=== PATIENT | male | born 1945 | race Caucasian/White ===

== ENCOUNTER 2019-06-09 14:11 | Inpatient (IN) | payer MEDICARE ==
[~2019-06-09] VITALS: Ht 188 cm; Wt 80.0 kg
[2019-06-09 15:10] LABS: BASOPHILS # (AUTO) 0.1 X10'3 (0-0.2); BASOPHILS % (AUTO) 0.9 % (0-1); EOSINOPHILS # (AUTO) 0.1 X10'3 (0-0.9); HEMATOCRIT 37.2 % (42.0-52.0); HEMOGLOBIN 12.3 g/dl (14.0-17.9); LYMPHOCYTES # (AUTO) 1.4 X10'3 (1.1-4.8); LYMPHOCYTES % (AUTO) 25.1 % (21-51); MEAN CORPUSCULAR HEMOGLOBIN 26.9 PG (27.0-31.0); MEAN CORPUSCULAR VOLUME 81.5 FL (78-98); MEAN PLATELET VOLUME 8.5 FL (7.4-10.4); MONOCYTES # (AUTO) 0.5 X10'3 (0-0.9); NEUTROPHILS # (AUTO) 3.7 X10'3 (1.8-7.7); PLATELET COUNT 191 X10'3 (140-440); RED BLOOD COUNT 4.56 X10'6 (4.70-6.10); RED CELL DISTRIBUTION WIDTH 20.2 % (11.5-14.5); WHITE BLOOD COUNT 5.6 X10'3 (4.5-11.0)
[2019-06-09 15:24] LABS: ALANINE AMINOTRANSFERASE 47 U/L (12-78); ALBUMIN 4.1 G/DL (3.4-5.0); ALBUMIN/GLOBULIN RATIO 1.5 (1.1-1.5); ALKALINE PHOSPHATASE 96 IU/L (46-116); ANION GAP 13 (8-16); ASPARTATE AMINO TRANSFERASE 26 U/L (10-37); BILIRUBIN,TOTAL 0.9 MG/DL (0.1-1.0); BLOOD UREA NITROGEN 21 MG/DL (7-18); BUN/CREATININE RATIO 19.6 (5.4-32.0); CALCIUM 9.1 MG/DL (8.5-10.1); CHLORIDE 109 MMOL/L (99-107); CREATININE 1.07 MG/DL (0.60-1.10); GLUCOSE 95 MG/DL (70-104); SODIUM 146 MMOL/L (135-145); TOTAL CARBON DIOXIDE 24.4 MMOL/L (24-32); TOTAL PROTEIN 6.9 G/DL (6.4-8.2); eGFR 67 ML/MIN
[2019-06-09 15:43] LABS: PARTIAL THROMBOPLASTIN TIME 28 SECONDS (22-32)
[2019-06-09 16:06] LABS: ANISOCYTOSIS 3+; PLATELET ESTIMATE NORMAL
[2019-06-09] MEDS ORDERED: potassium CL 10mEq/100ml bag 100 ML IV PRN ×2 (16:30)
[2019-06-09] MEDS ORDERED: ondansetron/PF 4mg/2ml inj IV PRN (16:30)
[2019-06-09] MEDS ORDERED: acetaminophen 325mg tablet PO PRN ×2 (16:30)
[2019-06-09] MEDS ORDERED: potassium Cl 20 mEq SR tablet PO PRN (16:30)
[2019-06-09] MEDS ORDERED: bisacodyl 10mg suppository rectal RC PRN (16:30)
[2019-06-09] MEDS ORDERED: magnesium 2GM in 50ml NS 50 ML IV PRN (16:30)
[2019-06-09] MEDS ORDERED: magnesium hydroxide 30ml (MOM) UD suspension PO PRN (16:30)
[2019-06-09] MEDS ORDERED: magnesium 4gm in 100ml NS 100 ML IV PRN (16:30)
[2019-06-09] MEDS ORDERED: magnesium Cl slow-release 64mg tablet PO PRN (16:30)
[2019-06-09] MEDS ORDERED: HYDROcodone/acetaminophen 10/325mg tab PO PRN (16:30)
[2019-06-09] MEDS ORDERED: HYDROcodone/acetaminophen 5mg/325mg tablet PO PRN (16:30)
[2019-06-09] MEDS ORDERED: mag hydrox/Alum hydrox/simeth 30ml oral suspension PO PRN (16:30)
[2019-06-09] MEDS ORDERED: furosemide 10 MG/1 ML 10ml inj IV ONE (16:35)
[2019-06-09] MEDS ORDERED: MELA3TAB64 PO (16:56)
[2019-06-09] MEDS ORDERED: LACTC PO (16:56)
[2019-06-09] MEDS ORDERED: SENN-250 PO (16:56)
[2019-06-09] MEDS ORDERED: POTA-82 PO (16:56)
[2019-06-09] MEDS ORDERED: FURO-150 PO (16:56)
[2019-06-09] MEDS ORDERED: ACET-2119 PO (16:56)
[2019-06-09 17:30] VITALS: BP 152/67
--- NOTE | 2019-06-09 17:43 | NUR ---
Pt. arrived from the ER. No complaints. Pt. placed on monitor and vitals taken. Skin is clear.
[2019-06-09 18:00] VITALS: BP 124/50
--- NOTE | 2019-06-09 18:28 | NUR ---
Problems reprioritized. Patient report given, questions answered & plan of care reviewed with Earnestine GOMEZ and Sienna GOMEZ.
--- NOTE | 2019-06-09 18:32 | NUR ---
Patient in room MED 316. I have received report from aPtel GOMEZ and had the opportunity to ask questions and assume patient care.
[2019-06-09] MEDS: furosemide 40mg/4ml inj IV SCH (20:00)
--- NOTE | 2019-06-09 20:08 | NUR ---
Room 316-Active order for Echo. Thank you for your help. JASON Colby
[2019-06-09] MEDS ORDERED: temazepam 15mg capsule PO PRN (21:00)
[2019-06-09 22:00] VITALS: BP 148/77
[2019-06-09] MEDS: Melatonin 3mg tablet PO SCH (22:28)
[2019-06-10 02:00] VITALS: BP 132/73
[2019-06-10 04:09] LABS: BASOPHILS # (AUTO) 0.1 X10'3 (0-0.2); BASOPHILS % (AUTO) 0.9 % (0-1); EOSINOPHILS # (AUTO) 0.1 X10'3 (0-0.9); EOSINOPHILS % (AUTO) 1.5 % (0-6); HEMATOCRIT 37.9 % (42.0-52.0); HEMOGLOBIN 12.4 g/dl (14.0-17.9); LYMPHOCYTES # (AUTO) 1.9 X10'3 (1.1-4.8); LYMPHOCYTES % (AUTO) 32.3 % (21-51); MEAN CORPUSCULAR HEMOGLOBIN 26.8 PG (27.0-31.0); MEAN CORPUSCULAR HGB CONC 32.9 g/dL (33.0-36.5); MEAN CORPUSCULAR VOLUME 81.4 FL (78-98); MEAN PLATELET VOLUME 8.6 FL (7.4-10.4); MONOCYTES # (AUTO) 0.5 X10'3 (0-0.9); MONOCYTES % (AUTO) 9.1 % (2-12); NEUTROPHILS # (AUTO) 3.2 X10'3 (1.8-7.7); NEUTROPHILS % (AUTO) 56.2 % (42-75); PLATELET COUNT 187 X10'3 (140-440); RED BLOOD COUNT 4.65 X10'6 (4.70-6.10); RED CELL DISTRIBUTION WIDTH 20.2 % (11.5-14.5); WHITE BLOOD COUNT 5.8 X10'3 (4.5-11.0)
[2019-06-10 04:22] LABS: ALANINE AMINOTRANSFERASE 41 U/L (12-78); ALBUMIN 3.7 G/DL (3.4-5.0); ALBUMIN/GLOBULIN RATIO 1.4 (1.1-1.5); ALKALINE PHOSPHATASE 93 IU/L (46-116); ANION GAP 12 (8-16); ASPARTATE AMINO TRANSFERASE 20 U/L (10-37); BILIRUBIN,TOTAL 0.7 MG/DL (0.1-1.0); BLOOD UREA NITROGEN 30 MG/DL (7-18); BUN/CREATININE RATIO 27.5 (5.4-32.0); CALCIUM 8.5 MG/DL (8.5-10.1); CHLORIDE 109 MMOL/L (99-107); CREATININE 1.09 MG/DL (0.60-1.10); GLUCOSE 99 MG/DL (70-104); POTASSIUM 3.4 MMOL/L (3.5-5.1); SODIUM 145 MMOL/L (135-145); TOTAL CARBON DIOXIDE 24.4 MMOL/L (24-32); TOTAL PROTEIN 6.4 G/DL (6.4-8.2); eGFR 66 ML/MIN
[2019-06-10 04:24] LABS: ANISOCYTOSIS 3+; PLATELET ESTIMATE NORMAL
[2019-06-10 04:25] LABS: CHOL/HDL RATIO 3.6 (0.00-4.99); CHOLESTEROL 167 MG/DL (0-200); ELLIPTOCYTES FEW; HDL CHOLESTEROL 46 MG/DL (35-60); LDL CHOLESTEROL 107 MG/DL (50-100); MAGNESIUM 2.1 MG/DL (1.5-2.4); PHOSPHORUS 4.9 MG/DL (2.3-4.5); SCHISTOCYTES FEW; TRIGLYCERIDES 101 MG/DL (20-135)
[2019-06-10] MEDS: potassium Cl 20 mEq SR tablet PO PRN ×2 (04:57→08:56)
--- NOTE | 2019-06-10 05:54 | NUR ---
Orienteer documentation: I have reviewed and agree with all interventions, assessments performed and documented by JASON El. Orienteer Medication Administration: For this medication-pass time frame, all medication were reviewed, dispensed, administered and documented per hospital policy by JASON El.
--- NOTE | 2019-06-10 06:15 | NUR ---
Patient in room MED 316. I have received report from Earnestine GOMEZ and had the opportunity to ask questions and assume patient care.
--- NOTE | 2019-06-10 06:36 | NUR ---
Problems reprioritized. Patient report given, questions answered & plan of care reviewed with Wilda GOMEZ.
[2019-06-10 06:43] VITALS: BP 137/85
[2019-06-10] MEDS ORDERED: non-formulary drug (Potassium Chloride 1 TAB) PO SCH (08:00)
[2019-06-10] MEDS ORDERED: MESSAGE TO NURSING PO ONE (08:35)
[2019-06-10] MEDS: furosemide 40mg/4ml inj IV SCH (08:54)
[2019-06-10] MEDS: potassium Cl 20 mEq SR tablet PO SCH (08:54)
[2019-06-10] MEDS: K and/or MAG REPLACEMENT MC SCH (08:57)
[2019-06-10 09:15] LABS: HEMATOCRIT 37.8 % (42.0-52.0); HEMOGLOBIN 12.6 g/dl (14.0-17.9); MEAN CORPUSCULAR HEMOGLOBIN 27.1 PG (27.0-31.0); MEAN CORPUSCULAR HGB CONC 33.3 g/dL (33.0-36.5); MEAN CORPUSCULAR VOLUME 81.4 FL (78-98); MEAN PLATELET VOLUME 8.4 FL (7.4-10.4); PLATELET COUNT 183 X10'3 (140-440); RED BLOOD COUNT 4.64 X10'6 (4.70-6.10); RED CELL DISTRIBUTION WIDTH 19.8 % (11.5-14.5)
[2019-06-10 09:28] LABS: ALBUMIN 3.7 G/DL (3.4-5.0); ANION GAP 6 (8-16); BLOOD UREA NITROGEN 31 MG/DL (7-18); BUN/CREATININE RATIO 26.1 (5.4-32.0); CALCIUM 8.8 MG/DL (8.5-10.1); CHLORIDE 110 MMOL/L (99-107); CREATININE 1.19 MG/DL (0.60-1.10); GLUCOSE 146 MG/DL (70-104); PARTIAL THROMBOPLASTIN TIME 28 SECONDS (22-32); POTASSIUM 4.1 MMOL/L (3.5-5.1); SODIUM 145 MMOL/L (135-145); TOTAL CARBON DIOXIDE 28.6 MMOL/L (24-32); eGFR 60 ML/MIN
[2019-06-10 09:46] LABS: HEMOGLOBIN A1C 5.3 % (4.5-6.2)
[2019-06-10 10:20] LABS: ABG BASE EXCESS -2.1 mmol/L (-2.0-3.0); ABG HCO3 20.7 mmol/L (22.0-26.0); ABG OXYGEN SATURATION 96.5 % (95-98); ABG PCO2 (T) 30.3 mmHg (35.0-45.0); ABG PH (T) 7.453 (7.350-7.450); ABG PO2 (T) 87.5 mmHg (83-108); ALLEN'S TEST Positive; FCOHb 0.3 % (0.5-1.5); FMetHb 0.2 % (0.3-1.12); RESPIRATORY RATE (OBSERVED) 19 b/min; TOTAL HEMOGLOBIN 13.6 G/dl (14.0-17.9)
[2019-06-10 10:32] LABS: C-REACTIVE PROTEIN 0.38 MG/DL (0.0-0.5)
[2019-06-10] MEDS ORDERED: albuterol 2.5 MG/3 ML nebule ONE (10:34)
[2019-06-10 11:00] VITALS: BP 117/59
--- NOTE | 2019-06-10 12:26 | NUR ---
Paged hospitalist duong HENDRICKS, "Wilda [phone]- Rm.316 Odin Ruth patient's heart cath records from [facility] on chart."
[2019-06-10 15:00] VITALS: BP 119/80
--- NOTE | 2019-06-10 16:17 | NUR ---
Paged hospitalist, "Wilda [phone]- We placed orders for the preop PA/LAT CXR. It looks questionable, could you review it for 316 Garett Ruth. Thank you"
[2019-06-10 18:00] VITALS: BP 103/45
--- NOTE | 2019-06-10 18:32 | NUR ---
Problems reprioritized. Patient report given, questions answered & plan of care reviewed with Janna GOMEZ. Addendum: 06/10/19 at 1834 by Wilda Gonzales RN Report not given to Janna GOMEZ. Problems reprioritized. Patient report given, questions answered & plan of care reviewed with Earnestine GOMEZ/Sienna GOMEZ.
--- NOTE | 2019-06-10 19:01 | NUR ---
Patient in room MED 316. I have received report from Wilda GOMEZ and had the opportunity to ask questions and assume patient care.
--- NOTE | 2019-06-10 19:09 | NUR ---
Patient in room MED 316. I have received report from Wilda GOMEZ and had the opportunity to ask questions and assume patient care.
--- NOTE | 2019-06-10 20:18 | NUR ---
Patient's family are having concerns that the patient's dose of Lasix has been lowered from 80 mg per day to 40 mg daily. They state that in their experience the patient will swell up even just overnight with this low of a dose. They report that in the past other doctors have done this and he has become fluid overloaded very quickly. They are wanting to express their concerns regarding this. I will report this to the hospitalist.
[2019-06-10] MEDS: Melatonin 3mg tablet PO SCH (21:00)
[2019-06-10 22:00] VITALS: BP 132/54
[2019-06-11] VITALS (7 sets, daily range): BP systolic 99–139; BP diastolic 42–88
--- NOTE | 2019-06-11 05:40 | NUR ---
Orienteer documentation: I have reviewed and agree with all interventions, assessments performed and documented by Sienna Matthews RN. Orienteer Medication Administration: For this medication-pass time frame, all medication were reviewed, dispensed, administered and documented per hospital policy by Sienna Matthews RN.
[2019-06-11 06:20] LABS: BASOPHILS # (AUTO) 0.1 X10'3 (0-0.2); EOSINOPHILS # (AUTO) 0.1 X10'3 (0-0.9); EOSINOPHILS % (AUTO) 2.2 % (0-6); HEMATOCRIT 36.9 % (42.0-52.0); HEMOGLOBIN 12.2 g/dl (14.0-17.9); LYMPHOCYTES # (AUTO) 1.7 X10'3 (1.1-4.8); LYMPHOCYTES % (AUTO) 32.6 % (21-51); MEAN CORPUSCULAR HEMOGLOBIN 27.1 PG (27.0-31.0); MEAN CORPUSCULAR HGB CONC 33.2 g/dL (33.0-36.5); MEAN CORPUSCULAR VOLUME 81.5 FL (78-98); MEAN PLATELET VOLUME 8.9 FL (7.4-10.4); MONOCYTES # (AUTO) 0.4 X10'3 (0-0.9); MONOCYTES % (AUTO) 8.7 % (2-12); NEUTROPHILS # (AUTO) 2.8 X10'3 (1.8-7.7); NEUTROPHILS % (AUTO) 55.5 % (42-75); PLATELET COUNT 176 X10'3 (140-440); RED BLOOD COUNT 4.52 X10'6 (4.70-6.10); RED CELL DISTRIBUTION WIDTH 19.5 % (11.5-14.5); WHITE BLOOD COUNT 5.1 X10'3 (4.5-11.0)
[2019-06-11 06:23] LABS: ALANINE AMINOTRANSFERASE 37 U/L (12-78); ALBUMIN 3.4 G/DL (3.4-5.0); ALBUMIN/GLOBULIN RATIO 1.3 (1.1-1.5); ALKALINE PHOSPHATASE 82 IU/L (46-116); ANION GAP 11 (8-16); ASPARTATE AMINO TRANSFERASE 18 U/L (10-37); BILIRUBIN,TOTAL 0.7 MG/DL (0.1-1.0); BLOOD UREA NITROGEN 32 MG/DL (7-18); BUN/CREATININE RATIO 29.9 (5.4-32.0); CALCIUM 8.6 MG/DL (8.5-10.1); CHLORIDE 111 MMOL/L (99-107); CREATININE 1.07 MG/DL (0.60-1.10); GLUCOSE 99 MG/DL (70-104); MAGNESIUM 2.2 MG/DL (1.5-2.4); POTASSIUM 3.6 MMOL/L (3.5-5.1); SODIUM 146 MMOL/L (135-145); TOTAL CARBON DIOXIDE 24.2 MMOL/L (24-32); TOTAL PROTEIN 6.1 G/DL (6.4-8.2); eGFR 67 ML/MIN
--- NOTE | 2019-06-11 06:29 | NUR ---
Problems reprioritized. Patient report given, to Art RN questions answered & plan of care reviewed with .
[2019-06-11] MEDS: K and/or MAG REPLACEMENT MC SCH (08:00)
[2019-06-11] MEDS ORDERED: furosemide 40mg/4ml inj IV SCH (08:00)
[2019-06-11] MEDS ORDERED: furosemide 20 MG/2 ML vial IV SCH (08:00)
[2019-06-11] MEDS: potassium Cl 20 mEq SR tablet PO SCH (08:01)
[2019-06-11 10:00] LABS: ANISOCYTOSIS 2+; PLATELET ESTIMATE NORMAL
[2019-06-11 10:01] LABS: ELLIPTOCYTES FEW
[2019-06-11] MEDS ORDERED: furosemide 20 MG/2 ML vial IV ONE (13:10)
--- NOTE | 2019-06-11 16:00 | NUR ---
Patient met at bedside by TIM, discussed food preferences and provided patient with written alternative menu to regular diet, patient expressed very grateful that the list was provided and happy with the discussion. Addendum: 06/11/19 at [address] Amended: Links added.
[2019-06-11] MEDS ORDERED: MESSAGE TO NURSING PO ONE (18:00)
--- NOTE | 2019-06-11 18:00 | NUR ---
Patient in room MED 316. I have received report from JASON Pacheco and had the opportunity to ask questions and assume patient care.
[2019-06-11] MEDS ORDERED: mupirocin 2% ointment 22GM NS SCH (20:00)
[2019-06-11] MEDS: Melatonin 3mg tablet PO SCH (21:00)
[2019-06-11] MEDS: furosemide 20 MG/2 ML vial IV SCH (21:40)
[2019-06-12] MEDS ORDERED: MESSAGE TO NURSING PO ONE ×3 (02:00→05:30)
[2019-06-12 04:54] LABS: BASOPHILS % (AUTO) 0.9 % (0-1); EOSINOPHILS # (AUTO) 0.1 X10'3 (0-0.9); EOSINOPHILS % (AUTO) 2.4 % (0-6); HEMATOCRIT 36.1 % (42.0-52.0); LYMPHOCYTES # (AUTO) 1.7 X10'3 (1.1-4.8); LYMPHOCYTES % (AUTO) 33.5 % (21-51); MEAN CORPUSCULAR HEMOGLOBIN 26.9 PG (27.0-31.0); MEAN CORPUSCULAR HGB CONC 33.3 g/dL (33.0-36.5); MEAN CORPUSCULAR VOLUME 80.9 FL (78-98); MEAN PLATELET VOLUME 8.3 FL (7.4-10.4); MONOCYTES # (AUTO) 0.5 X10'3 (0-0.9); MONOCYTES % (AUTO) 9.3 % (2-12); NEUTROPHILS # (AUTO) 2.8 X10'3 (1.8-7.7); NEUTROPHILS % (AUTO) 53.9 % (42-75); PLATELET COUNT 185 X10'3 (140-440); RED BLOOD COUNT 4.47 X10'6 (4.70-6.10); RED CELL DISTRIBUTION WIDTH 19.3 % (11.5-14.5); WHITE BLOOD COUNT 5.2 X10'3 (4.5-11.0)
[2019-06-12 05:04] LABS: ALANINE AMINOTRANSFERASE 38 U/L (12-78); ALBUMIN 3.5 G/DL (3.4-5.0); ALBUMIN/GLOBULIN RATIO 1.4 (1.1-1.5); ALKALINE PHOSPHATASE 82 IU/L (46-116); ANION GAP 8 (8-16); ASPARTATE AMINO TRANSFERASE 13 U/L (10-37); BILIRUBIN,TOTAL 0.6 MG/DL (0.1-1.0); BLOOD UREA NITROGEN 30 MG/DL (7-18); BUN/CREATININE RATIO 28.8 (5.4-32.0); CALCIUM 9.3 MG/DL (8.5-10.1); CHLORIDE 111 MMOL/L (99-107); CREATININE 1.04 MG/DL (0.60-1.10); GLUCOSE 101 MG/DL (70-104); MAGNESIUM 2.5 MG/DL (1.5-2.4); PHOSPHORUS 4.7 MG/DL (2.3-4.5); POTASSIUM 3.9 MMOL/L (3.5-5.1); SODIUM 144 MMOL/L (135-145); TOTAL CARBON DIOXIDE 25.1 MMOL/L (24-32); eGFR 70 ML/MIN
[2019-06-12] MEDS: gabapentin 400mg capsule PO ONE (05:30)
[2019-06-12] MEDS: metoprolol tartrate 12.5mg (1/2 tablet) PO SCH ×2 (05:30→20:00)
[2019-06-12] MEDS ORDERED: dextrose 50%-water 50ml dispensing syringe IV PRN ×2 (05:30→18:20)
[2019-06-12] MEDS ORDERED: NUT.TX.IMPAIRED DIGEST FXN (Ensure Clear) 237 ML PO ONE (05:30)
[2019-06-12 06:00] VITALS: BP 104/54
[2019-06-12 06:37] LABS: ANISOCYTOSIS 2+; ELLIPTOCYTES 1+; PLATELET ESTIMATE NORMAL
[2019-06-12 06:38] LABS: BURR CELLS FEW
[2019-06-12 08:00] VITALS: BP 103/68
[2019-06-12] MEDS: furosemide 20 MG/2 ML vial IV SCH ×2 (08:00→19:55)
[2019-06-12] MEDS: K and/or MAG REPLACEMENT MC SCH (08:00)
[2019-06-12] MEDS: potassium Cl 20 mEq SR tablet PO SCH (08:45)
[2019-06-12] MEDS ORDERED: ringers solution, lacted 1,000 ML IV ONE (10:36)
[2019-06-12 11:31] LABS: BASOPHILS % (AUTO) 0.7 % (0-1); EOSINOPHILS # (AUTO) 0.1 X10'3 (0-0.9); EOSINOPHILS % (AUTO) 1.4 % (0-6); LYMPHOCYTES # (AUTO) 1.6 X10'3 (1.1-4.8); LYMPHOCYTES % (AUTO) 27.4 % (21-51); MEAN CORPUSCULAR HGB CONC 33.6 g/dL (33.0-36.5); MEAN CORPUSCULAR VOLUME 80.5 FL (78-98); MEAN PLATELET VOLUME 7.9 FL (7.4-10.4); MONOCYTES # (AUTO) 0.5 X10'3 (0-0.9); MONOCYTES % (AUTO) 8.9 % (2-12); NEUTROPHILS # (AUTO) 3.5 X10'3 (1.8-7.7); NEUTROPHILS % (AUTO) 61.6 % (42-75); PRE OP HEMATOCRIT 36.7 % (42.0-52.0); PRE OP HEMOGLOBIN 12.3 g/dL (14.0-17.9); PRE OP PLATELET COUNT 199 X10'3 (140-440); RED BLOOD COUNT 4.56 X10'6 (4.70-6.10); RED CELL DISTRIBUTION WIDTH 19.6 % (11.5-14.5)
[2019-06-12 11:44] LABS: ANISOCYTOSIS 2+; ELLIPTOCYTES FEW; PLATELET ESTIMATE NORMAL; SCHISTOCYTES FEW
[2019-06-12 11:52] LABS: ALBUMIN 3.8 G/DL (3.4-5.0); ALBUMIN/GLOBULIN RATIO 1.4 (1.1-1.5); ALKALINE PHOSPHATASE 90 IU/L (46-116); BLOOD UREA NITROGEN 30 MG/DL (7-18); BUN/CREATININE RATIO 25.4 (5.4-32.0); CALCIUM 8.5 MG/DL (8.5-10.1); CHLORIDE 109 MMOL/L (99-107); CREATININE 1.18 MG/DL (0.60-1.10); PRE OP ALT 34 U/L (30-65); PRE OP ANION GAP 9 (8-16); PRE OP AST 14 U/L (10-37); PRE OP BILIRUB, TOTAL 0.8 MG/DL (0.0-1.0); PRE OP GLUCOSE 78 MG/DL (70-104); PRE OP SODIUM 145 MMOL/L (135-145); TOTAL CARBON DIOXIDE 26.6 MMOL/L (24-32); TOTAL PROTEIN 6.6 G/DL (6.4-8.2); eGFR 60 ML/MIN
[2019-06-12 15:00] VITALS: BP 110/71
[2019-06-12 18:00] VITALS: BP 133/52
[2019-06-12] MEDS ORDERED: insulin glargine (Lantus) pen - multi-dose SQ PRN (18:20)
[2019-06-12] MEDS ORDERED: insulin regular, human 100 UNIT in normal saline 100ml IV soln 100 ML IV SCH ×2 (18:20)
[2019-06-12] MEDS: Melatonin 3mg tablet PO SCH (21:00)
[2019-06-12 21:05] LABS: CLARITY,URINE CLEAR (Clear); COLOR,URINE YELLOW (Yellow); GLUCOSE, URINE NEGATIVE (Neg); KETONES,URINE NEGATIVE (Neg); LEUKOCYTE ESTERASE ,URINE NEGATIVE (Neg); NITRITES, URINE NEGATIVE (Neg); OCCULT BLOOD,URINE NEGATIVE (Neg); PROTEIN,URINE NEGATIVE (Neg); UROBILINOGEN,URINE 0.2 E.U/dL (0.2-1.0)
[2019-06-12 21:15] LABS: UA COLLECTION TYPE URINAL
--- NOTE | 2019-06-12 21:46 | NUR ---
Patient in room MED 316. I have received report from Art RN and had the opportunity to ask questions and assume patient care.
[2019-06-12 22:00] VITALS: BP 114/46
[2019-06-13] VITALS (26 sets, daily range): BP systolic 74–138; BP diastolic 54–81
[2019-06-13 03:20] LABS: BASOPHILS # (AUTO) 0.1 X10'3 (0-0.2); EOSINOPHILS # (AUTO) 0.1 X10'3 (0-0.9); EOSINOPHILS % (AUTO) 1.9 % (0-6); HEMOGLOBIN 12.1 g/dl (14.0-17.9); LYMPHOCYTES # (AUTO) 1.7 X10'3 (1.1-4.8); MEAN CORPUSCULAR HEMOGLOBIN 27.4 PG (27.0-31.0); MEAN CORPUSCULAR HGB CONC 33.5 g/dL (33.0-36.5); MEAN CORPUSCULAR VOLUME 81.6 FL (78-98); MEAN PLATELET VOLUME 8.7 FL (7.4-10.4); MONOCYTES # (AUTO) 0.5 X10'3 (0-0.9); MONOCYTES % (AUTO) 8.7 % (2-12); NEUTROPHILS # (AUTO) 3.1 X10'3 (1.8-7.7); NEUTROPHILS % (AUTO) 56.4 % (42-75); PLATELET COUNT 181 X10'3 (140-440); RED BLOOD COUNT 4.41 X10'6 (4.70-6.10); RED CELL DISTRIBUTION WIDTH 19.5 % (11.5-14.5); WHITE BLOOD COUNT 5.4 X10'3 (4.5-11.0)
[2019-06-13 03:22] LABS: PARTIAL THROMBOPLASTIN TIME 28 SECONDS (22-32)
[2019-06-13 03:24] LABS: ALANINE AMINOTRANSFERASE 35 U/L (12-78); ALBUMIN 3.8 G/DL (3.4-5.0); ALBUMIN/GLOBULIN RATIO 1.4 (1.1-1.5); ALKALINE PHOSPHATASE 89 IU/L (46-116); ANION GAP 12 (8-16); ASPARTATE AMINO TRANSFERASE 17 U/L (10-37); BILIRUBIN,TOTAL 0.8 MG/DL (0.1-1.0); BLOOD UREA NITROGEN 31 MG/DL (7-18); BUN/CREATININE RATIO 24.8 (5.4-32.0); CALCIUM 8.7 MG/DL (8.5-10.1); CHLORIDE 109 MMOL/L (99-107); CREATININE 1.25 MG/DL (0.60-1.10); GLUCOSE 98 MG/DL (70-104); MAGNESIUM 2.4 MG/DL (1.5-2.4); PHOSPHORUS 4.7 MG/DL (2.3-4.5); POTASSIUM 3.6 MMOL/L (3.5-5.1); SODIUM 146 MMOL/L (135-145); TOTAL CARBON DIOXIDE 24.9 MMOL/L (24-32); TOTAL PROTEIN 6.5 G/DL (6.4-8.2); eGFR 56 ML/MIN
[2019-06-13] MEDS: metoprolol tartrate 12.5mg (1/2 tablet) PO SCH ×2 (04:19→08:00)
[2019-06-13] MEDS: gabapentin 400mg capsule PO ONE (04:20)
[2019-06-13 04:27] LABS: ANISOCYTOSIS 2+; ELLIPTOCYTES 1+; PLATELET ESTIMATE NORMAL
[2019-06-13] MEDS ORDERED: ROPIVAcaine 0.5% (5mg/ml) 30ml vial ONE (05:08)
[2019-06-13] MEDS ORDERED: vancomycin/NS 1 GM ADD-VANTAGE 250 ML IV ONE ×2 (05:30)
[2019-06-13] MEDS ORDERED: insulin regular, human 100 UNIT in normal saline 100ml IV soln 100 ML IV SCH ×4 (05:30→14:10)
[2019-06-13] MEDS ORDERED: cefazolin/dext.iso 2gm/50ml 100 ML IV ONE (05:30)
[2019-06-13] MEDS ORDERED: insulin glargine (Lantus) pen - multi-dose SQ PRN (05:30)
[2019-06-13] MEDS ORDERED: LORazepam 2 mg/ml vial IV ONE (06:00)
[2019-06-13] MEDS ORDERED: famotidine 20mg tablet PO ONE (06:00)
--- NOTE | 2019-06-13 06:46 | NUR ---
Reviewed and agreed with Ramesh Matthews RN's charting.
--- NOTE | 2019-06-13 06:51 | NUR ---
Problems reprioritized. Patient report given, questions answered & plan of care reviewed with Pat RN.
[2019-06-13] MEDS ORDERED: SUFENTANIL CITRATE 50 MCG/ML 2ml ampule IV ONE (06:52)
[2019-06-13] MEDS ORDERED: midazolam 2 mg/2 ml injection ONE ×3 (06:52→08:27)
[2019-06-13] MEDS ORDERED: rocuronium 10mg/ml inj IV ONE ×2 (06:53→08:09)
[2019-06-13] MEDS ORDERED: etomidate 2mg/ml inj. ONE (06:53)
[2019-06-13] MEDS ORDERED: ePHEDrine 50MG/ML INJ. ONE (07:17)
[2019-06-13] MEDS ORDERED: albumin (Human) 5% 250ml 250 ML IV ONE ×2 (07:18→18:50)
[2019-06-13 07:25] LABS: ABG BASE EXCESS -2.9 mmol/L (-2.0-3.0); ABG HCO3 22.2 mmol/L (22.0-26.0); ABG OXYGEN SATURATION 99.4 % (95-98); ABG PCO2 39.9 mmHg (35.0-45.0); ABG PH 7.363 (7.350-7.450); ABG PO2 341.7 mmHg (60.0-100.0); CL (ABG) 106 mmol/L (99-107); FCOHb 0.5 % (0.5-1.5); FMetHb 0.5 % (0.3-1.12); FO2Hb 98.4 % (94-100); GLUCOSE (ABG) 280 mg/dl (70-104); IONIZED CA (ABG) 1.13 mmol/L (1.03-1.32); K (ABG) 3.4 mmol/L (3.3-5.1); NA (ABG) 139 mmol/L (135-145); TOTAL HEMOGLOBIN 11.2 G/dl (14.0-17.9)
[2019-06-13] MEDS ORDERED: LIDOcaine 2% (20 mg/ml) 5ml cardiac syringe ONE (08:00)
[2019-06-13] MEDS ORDERED: sodium bicarbonate (8.4%) 1 mEq/ml syringe ONE (08:00)
[2019-06-13] MEDS ORDERED: magnesium sulf 1 GM/2 ML ONE (08:00)
[2019-06-13] MEDS ORDERED: albumin (human) 25% 100 ML IV solution IV ONE (08:00)
[2019-06-13] MEDS ORDERED: aminocaproic acid 250 MG/1 ML inj. ONE (08:00)
[2019-06-13] MEDS ORDERED: mupirocin 2% nasal ointment 1gm UD NS SCH (08:00)
[2019-06-13] MEDS ORDERED: potassium Cl 2 mEq/ml inj IV ONE (08:00)
[2019-06-13] MEDS ORDERED: heparin 10,000 units/1 ML INJ ONE (08:00)
[2019-06-13] MEDS ORDERED: phenylephrine 10mg/ml inj. ONE (08:00)
[2019-06-13] MEDS ORDERED: methylPREDNISolone sod. succ. 500mg inj ONE (08:00)
[2019-06-13] MEDS ORDERED: calcium chloride 100 MG/1 ML inj IV ONE (08:00)
[2019-06-13 08:06] LABS: ABG BASE EXCESS -4.7 mmol/L (-2.0-3.0); ABG HCO3 20.7 mmol/L (22.0-26.0); ABG OXYGEN SATURATION 96.7 % (95-98); ABG PCO2 39.1 mmHg (35.0-45.0); ABG PH 7.341 (7.350-7.450); ABG PO2 100.7 mmHg (60.0-100.0); CL (ABG) 106 mmol/L (99-107); FCOHb 0.8 % (0.5-1.5); FMetHb 0.3 % (0.3-1.12); FO2Hb 95.6 % (94-100); GLUCOSE (ABG) 214 mg/dl (70-104); IONIZED CA (ABG) 1.13 mmol/L (1.03-1.32); K (ABG) 3.3 mmol/L (3.3-5.1); NA (ABG) 138 mmol/L (135-145); TOTAL HEMOGLOBIN 10.8 G/dl (14.0-17.9)
[2019-06-13 08:25] LABS: ABG BASE EXCESS -2.8 mmol/L (-2.0-3.0); ABG HCO3 22.2 mmol/L (22.0-26.0); ABG OXYGEN SATURATION 99.6 % (95-98); ABG PCO2 38.9 mmHg (35.0-45.0); ABG PH 7.374 (7.350-7.450); ABG PO2 441.2 mmHg (60.0-100.0); CL (ABG) 104 mmol/L (99-107); FCOHb 0.9 % (0.5-1.5); FMetHb 0.4 % (0.3-1.12); FO2Hb 98.3 % (94-100); GLUCOSE (ABG) 184 mg/dl (70-104); IONIZED CA (ABG) 1.04 mmol/L (1.03-1.32); K (ABG) 4.5 mmol/L (3.3-5.1); NA (ABG) 137 mmol/L (135-145); TOTAL HEMOGLOBIN 8.6 G/dl (14.0-17.9)
[2019-06-13 08:30] LABS: ABG BASE EXCESS VENOUS -2.1 mmol/L; ABG HCO3 VENOUS 24.2 mmol/L; ABG PCO2 VENOUS 49.1 mmHg; ABG PO2 VENOUS 71.1 mmHg; FCOHb VENOUS 1.2 %; FMetHb VENOUS 0.3 %; FO2Hb VENOUS 89.5 %; TOTAL HEMOGLOBIN 8.7 G/dl (14.0-17.9)
[2019-06-13 08:31] LABS: CL (ABG) 104 mmol/L (99-107); GLUCOSE (ABG) 187 mg/dl (70-104); IONIZED CA (ABG) 1.05 mmol/L (1.03-1.32); NA (ABG) 138 mmol/L (135-145)
[2019-06-13 08:45] LABS: ABG HCO3 24.2 mmol/L (22.0-26.0); ABG OXYGEN SATURATION 99.8 % (95-98); ABG PCO2 53.1 mmHg (35.0-45.0); ABG PH 7.276 (7.350-7.450); ABG PO2 455.4 mmHg (60.0-100.0); CL (ABG) 104 mmol/L (99-107); FCOHb 0.8 % (0.5-1.5); FMetHb 0.3 % (0.3-1.12); FO2Hb 98.7 % (94-100); GLUCOSE (ABG) 182 mg/dl (70-104); K (ABG) 3.8 mmol/L (3.3-5.1); NA (ABG) 139 mmol/L (135-145); TOTAL HEMOGLOBIN 10.7 G/dl (14.0-17.9)
[2019-06-13 09:15] LABS: ABG BASE EXCESS -3.9 mmol/L (-2.0-3.0); ABG HCO3 21.4 mmol/L (22.0-26.0); ABG OXYGEN SATURATION 99.3 % (95-98); ABG PCO2 40.1 mmHg (35.0-45.0); ABG PH 7.346 (7.350-7.450); ABG PO2 373.3 mmHg (60.0-100.0); CL (ABG) 105 mmol/L (99-107); FCOHb 0.3 % (0.5-1.5); FMetHb 0.6 % (0.3-1.12); FO2Hb 98.4 % (94-100); GLUCOSE (ABG) 167 mg/dl (70-104); K (ABG) 3.7 mmol/L (3.3-5.1); NA (ABG) 138 mmol/L (135-145); TOTAL HEMOGLOBIN 10.4 G/dl (14.0-17.9)
[2019-06-13 09:26] LABS: ABG BASE EXCESS 1.8 mmol/L (-2.0-3.0); ABG HCO3 26.8 mmol/L (22.0-26.0); ABG PCO2 44.2 mmHg (35.0-45.0); ABG PH 7.401 (7.350-7.450); ABG PO2 338.4 mmHg (60.0-100.0); CL (ABG) 101 mmol/L (99-107); FCOHb 0.2 % (0.5-1.5); FMetHb 0.6 % (0.3-1.12); FO2Hb 98.2 % (94-100); GLUCOSE (ABG) 151 mg/dl (70-104); K (ABG) 3.5 mmol/L (3.3-5.1); NA (ABG) 138 mmol/L (135-145)
[2019-06-13] MEDS ORDERED: acetaminophen 1,000mg/100ml IV 100 ML IV ONE (09:26)
[2019-06-13 10:05] LABS: ABG BASE EXCESS -0.3 mmol/L (-2.0-3.0); ABG HCO3 21.1 mmol/L (22.0-26.0); ABG OXYGEN SATURATION 99.3 % (95-98); ABG PCO2 24.9 mmHg (35.0-45.0); ABG PH 7.545 (7.350-7.450); ABG PO2 412.6 mmHg (60.0-100.0); CL (ABG) 105 mmol/L (99-107); FCOHb 0.6 % (0.5-1.5); FMetHb 0.6 % (0.3-1.12); FO2Hb 98.1 % (94-100); GLUCOSE (ABG) 140 mg/dl (70-104); IONIZED CA (ABG) 1.18 mmol/L (1.03-1.32); K (ABG) 4.1 mmol/L (3.3-5.1); NA (ABG) 139 mmol/L (135-145); TOTAL HEMOGLOBIN 10.9 G/dl (14.0-17.9)
[2019-06-13 10:30] LABS: ABG BASE EXCESS VENOUS -0.4 mmol/L; ABG HCO3 VENOUS 24.9 mmol/L; ABG PCO2 VENOUS 43.2 mmHg; ABG PO2 VENOUS 34.2 mmHg; CL (ABG) 104 mmol/L (99-107); FCOHb VENOUS 1.2 %; FMetHb VENOUS 0.5 %; FO2Hb VENOUS 60.3 %; GLUCOSE (ABG) 155 mg/dl (70-104); K (ABG) 3.7 mmol/L (3.3-5.1); NA (ABG) 140 mmol/L (135-145); TOTAL HEMOGLOBIN 11.8 G/dl (14.0-17.9)
[2019-06-13 11:02] LABS: PARTIAL THROMBOPLASTIN TIME 32 SECONDS (22-32)
[2019-06-13] MEDS ORDERED: dextrose 50%-water 50ml dispensing syringe IV PRN (11:05)
[2019-06-13] MEDS ORDERED: potassium Cl 20 mEq SR tablet PO PRN (11:05)
[2019-06-13] MEDS ORDERED: normal saline 250ml IV soln 250 ML IV PRN (11:05)
[2019-06-13] MEDS ORDERED: pantoprazole 40 MG vial IV ONE (11:05)
[2019-06-13] MEDS ORDERED: DOPamine 400mg/D5W 250ml 250 ML IV PRN ×2 (11:05→14:09)
[2019-06-13] MEDS ORDERED: sodium phosphate inj. 15 MMOL in dextrose 5%-water 150 ML IV PRN (11:05)
[2019-06-13] MEDS ORDERED: acetaminophen 325mg tablet PO PRN (11:05)
[2019-06-13] MEDS ORDERED: magnesium 4gm in 100ml NS 100 ML IV PRN (11:05)
[2019-06-13] MEDS ORDERED: ondansetron/PF 4mg/2ml inj IV PRN (11:05)
[2019-06-13] MEDS ORDERED: niCARDipine-NS 40mg/200ml IVPB 200 ML IV PRN ×2 (11:05→14:13)
[2019-06-13] MEDS ORDERED: Neutra Phos packet PO PRN (11:05)
[2019-06-13] MEDS ORDERED: HYDROcodone/acetaminophen 10/325mg tab PO PRN (11:05)
[2019-06-13] MEDS ORDERED: metoclopramide 5 mg/ml inj IV PRN (11:05)
[2019-06-13] MEDS ORDERED: insulin regular, human inj. 100 UNITS in normal saline 100ml IV soln 100 ML IV SCH ×4 (11:05→14:14)
[2019-06-13] MEDS ORDERED: sodium phosphate inj. 30 MMOL in dextrose 5%-water 250 ML IV PRN (11:05)
[2019-06-13] MEDS ORDERED: magnesium 2GM in 50ml NS 50 ML IV PRN (11:05)
[2019-06-13] MEDS ORDERED: morphine 4 MG/ML inj SYRINge IV PRN (11:05)
[2019-06-13] MEDS ORDERED: nitroGLYCERIN-Tridil 50MG/D5W 250 ML IV PRN ×2 (11:05→14:21)
[2019-06-13] MEDS ORDERED: magnesium hydroxide 30ml (MOM) UD suspension PO PRN (11:05)
--- NOTE | 2019-06-13 11:15 | NUR ---
Received to room 2013, accompanied by Jaylyn Carrillo and surgical crew. Placed on ventilator, to school lunch monitor, arterial line and PA line pressure monitored. Chest tubes to suction at 20 cm. Pate cath to gravity drainage. Dressings are dry and intact. See assessment record. All vasoactive drugs are infusing via central line.
--- NOTE | 2019-06-13 11:28 | NUR ---
Nutrition consult: Pt s/p MVR today. Will need education prior to discharge once stable. Will continue to follow. Addendum: 06/13/19 at [address] Amended: Links added.
[2019-06-13 11:46] LABS: ABG HCO3 22.5 mmol/L (22.0-26.0); ABG OXYGEN SATURATION 98.9 % (95-98); ABG PCO2 (T) 46.3 mmHg (35.0-45.0); ABG PH (T) 7.305 (7.350-7.450); ABG PO2 (T) 169.1 mmHg (83-108); FCOHb 0.4 % (0.5-1.5); FMetHb 0.4 % (0.3-1.12); FO2Hb 98.1 % (94-100); MINUTE VOLUME 8 L/min; PEEP 5 cm H2O; RESPIRATORY RATE 12 b/min; RESPIRATORY RATE (OBSERVED) 12 b/min; TIDAL VOLUME 600 mL; TOTAL HEMOGLOBIN 14.9 G/dl (14.0-17.9)
[2019-06-13] MEDS: albumin (Human) 5% 250ml 250 ML IV PRN ×4 (11:50→18:11)
[2019-06-13 11:57] LABS: BASOPHILS % (AUTO) 0.2 % (0-1); EOSINOPHILS # (AUTO) 0.1 X10'3 (0-0.9); EOSINOPHILS % (AUTO) 0.3 % (0-6); HEMOGLOBIN 14.1 g/dl (14.0-17.9); LYMPHOCYTES % (AUTO) 4.9 % (21-51); MEAN CORPUSCULAR HEMOGLOBIN 26.2 PG (27.0-31.0); MEAN CORPUSCULAR VOLUME 81.8 FL (78-98); MEAN PLATELET VOLUME 8.3 FL (7.4-10.4); MONOCYTES # (AUTO) 0.6 X10'3 (0-0.9); NEUTROPHILS # (AUTO) 18.5 X10'3 (1.8-7.7); NEUTROPHILS % (AUTO) 91.6 % (42-75); PLATELET COUNT 167 X10'3 (140-440); RED BLOOD COUNT 5.38 X10'6 (4.70-6.10); RED CELL DISTRIBUTION WIDTH 19.2 % (11.5-14.5); WHITE BLOOD COUNT 20.2 X10'3 (4.5-11.0)
[2019-06-13 12:11] LABS: ALANINE AMINOTRANSFERASE 33 U/L (12-78); ALBUMIN 4.5 G/DL (3.4-5.0); ALBUMIN/GLOBULIN RATIO 1.9 (1.1-1.5); ALKALINE PHOSPHATASE 80 IU/L (46-116); ANION GAP 11 (8-16); ASPARTATE AMINO TRANSFERASE 42 U/L (10-37); BILIRUBIN,TOTAL 1.4 MG/DL (0.1-1.0); BLOOD UREA NITROGEN 27 MG/DL (7-18); BUN/CREATININE RATIO 23.3 (5.4-32.0); CALCIUM 8.7 MG/DL (8.5-10.1); CHLORIDE 110 MMOL/L (99-107); CREATININE 1.16 MG/DL (0.60-1.10); GLUCOSE 148 MG/DL (70-104); MAGNESIUM 3.3 MG/DL (1.5-2.4); PHOSPHORUS 3.2 MG/DL (2.3-4.5); POTASSIUM 3.3 MMOL/L (3.5-5.1); SODIUM 145 MMOL/L (135-145); TOTAL CARBON DIOXIDE 23.6 MMOL/L (24-32); TOTAL PROTEIN 6.9 G/DL (6.4-8.2); eGFR 61 ML/MIN
[2019-06-13] MEDS: potassium Cl 20mEq/100mL bag 100 ML IV PRN ×4 (12:28→17:07)
[2019-06-13] MEDS: sodium chloride 0.45% 1,000 ML IV SCH (12:29)
[2019-06-13 12:54] LABS: ANISOCYTOSIS 2+; PLATELET ESTIMATE NORMAL; TOTAL CELLS COUNTED 100
[2019-06-13 12:55] LABS: ELLIPTOCYTES 1+; SCHISTOCYTES FEW
[2019-06-13] MEDS: gabapentin 300mg capsule PO SCH ×2 (13:00→20:38)
--- NOTE | 2019-06-13 14:00 | NUR ---
call placed to Dr Mcfarland and updated on CT drainage, CO and CI being low, orders received for FFP and platlets. Dop and Levo adjusted as per spreadsheet for CO/CI.
[2019-06-13] MEDS: ceFAZolin 1GM/D5W- ADD-VANTAGE 50 ML IV SCH ×2 (16:30→23:58)
--- NOTE | 2019-06-13 16:30 | NUR ---
turned to lateral side, skin check done,
--- NOTE | 2019-06-13 17:00 | NUR ---
call placed to dr Mcfarland, updated on CO CI and CT drainage, and status of patient regarding PA pressures,and CVP.
--- NOTE | 2019-06-13 17:45 | NUR ---
CO and CI improved, 4.6/2.2 dopa currently at 5mcg/kg/min and Levo at 10 mcg/kg/min, pt co of pain, will medicate for same as per DEC. 1800 accuchek drawn for 162, insulin gtt restarted as per DEC.
--- NOTE | 2019-06-13 18:00 | NUR ---
Problems reprioritized. Patient report given, to Pati dickerson RN questions answered & plan of care reviewed with same .
--- NOTE | 2019-06-13 18:31 | NUR ---
1830..Patient in room CICU 2012. I have received report from Adria GOMEZ and had the opportunity to ask questions and assume patient care.
[2019-06-13] MEDS ORDERED: NORepinephrine 8mg/ 250ml NS 250 ML IV ONE (18:41)
[2019-06-13] MEDS: NORepinephrine 8mg/ 250ml NS 250 ML IV SCH (18:50)
[2019-06-13 19:38] LABS: ANION GAP 12 (8-16); BLOOD UREA NITROGEN 27 MG/DL (7-18); BUN/CREATININE RATIO 24.5 (5.4-32.0); CALCIUM 8.2 MG/DL (8.5-10.1); CHLORIDE 114 MMOL/L (99-107); GLUCOSE 164 MG/DL (70-104); MAGNESIUM 3.1 MG/DL (1.5-2.4); POTASSIUM 5.4 MMOL/L (3.5-5.1); SODIUM 147 MMOL/L (135-145); TOTAL CARBON DIOXIDE 20.6 MMOL/L (24-32); eGFR 65 ML/MIN
[2019-06-13 19:45] LABS: BASOPHILS % (AUTO) 0.1 % (0-1); EOSINOPHILS % (AUTO) 0 % (0-6); HEMATOCRIT 25.6 % (42.0-52.0); HEMOGLOBIN 8.3 g/dl (14.0-17.9); LYMPHOCYTES # (AUTO) 0.2 X10'3 (1.1-4.8); LYMPHOCYTES % (AUTO) 1.7 % (21-51); MEAN CORPUSCULAR HEMOGLOBIN 26.7 PG (27.0-31.0); MEAN CORPUSCULAR HGB CONC 32.5 g/dL (33.0-36.5); MEAN PLATELET VOLUME 8.6 FL (7.4-10.4); MONOCYTES # (AUTO) 0.8 X10'3 (0-0.9); MONOCYTES % (AUTO) 5.9 % (2-12); NEUTROPHILS # (AUTO) 12.3 X10'3 (1.8-7.7); NEUTROPHILS % (AUTO) 92.3 % (42-75); PLATELET COUNT 163 X10'3 (140-440); RED BLOOD COUNT 3.12 X10'6 (4.70-6.10); WHITE BLOOD COUNT 13.3 X10'3 (4.5-11.0)
[2019-06-13 19:52] LABS: BASOPHILS % (AUTO) 0.1 % (0-1); EOSINOPHILS % (AUTO) 0 % (0-6); HEMOGLOBIN 7.1 g/dl (14.0-17.9); LYMPHOCYTES # (AUTO) 0.2 X10'3 (1.1-4.8); LYMPHOCYTES % (AUTO) 2.4 % (21-51); MEAN CORPUSCULAR HEMOGLOBIN 27.3 PG (27.0-31.0); MEAN CORPUSCULAR HGB CONC 33.2 g/dL (33.0-36.5); MEAN CORPUSCULAR VOLUME 82.2 FL (78-98); MONOCYTES # (AUTO) 0.5 X10'3 (0-0.9); MONOCYTES % (AUTO) 5.5 % (2-12); NEUTROPHILS # (AUTO) 8.2 X10'3 (1.8-7.7); PLATELET COUNT 127 X10'3 (140-440); WHITE BLOOD COUNT 8.9 X10'3 (4.5-11.0)
[2019-06-13] MEDS: docusate sod 100mg capsule PO SCH (20:00)
[2019-06-13 20:04] LABS: PARTIAL THROMBOPLASTIN TIME 29 SECONDS (22-32)
[2019-06-13 20:05] LABS: ALANINE AMINOTRANSFERASE 23 U/L (12-78); ALBUMIN 4.2 G/DL (3.4-5.0); ALBUMIN/GLOBULIN RATIO 2.6 (1.1-1.5); ALKALINE PHOSPHATASE 52 IU/L (46-116); ANION GAP 11 (8-16); ASPARTATE AMINO TRANSFERASE 30 U/L (10-37); BILIRUBIN,TOTAL 0.9 MG/DL (0.1-1.0); BLOOD UREA NITROGEN 28 MG/DL (7-18); BUN/CREATININE RATIO 24.6 (5.4-32.0); CHLORIDE 113 MMOL/L (99-107); CREATININE 1.14 MG/DL (0.60-1.10); GLUCOSE 173 MG/DL (70-104); POTASSIUM 5.1 MMOL/L (3.5-5.1); SODIUM 146 MMOL/L (135-145); TOTAL CARBON DIOXIDE 21.6 MMOL/L (24-32); TOTAL PROTEIN 5.8 G/DL (6.4-8.2); eGFR 63 ML/MIN
[2019-06-13 20:16] LABS: HEMATOCRIT 21.4 % (42.0-52.0)
[2019-06-13] MEDS: morphine 4 MG/ML inj SYRINge IV PRN (20:37)
[2019-06-13] MEDS: vancomycin/NS 1 GM ADD-VANTAGE 250 ML IV SCH (20:38)
[2019-06-13] MEDS: mupirocin 2% nasal ointment 1gm UD NS SCH (20:38)
[2019-06-13] MEDS: vasopressin inj. 20 UNIT in normal saline 100ml IV soln 39 ML IV SCH (20:39)
[2019-06-13] MEDS: Melatonin 3mg tablet PO SCH (20:42)
[2019-06-13] MEDS: insulin Lispro (HumaLOG) vial - multi-dose SQ SCH (21:00)
--- NOTE | 2019-06-13 22:56 | NUR ---
[id number]..Pt with drop in blood pressure, minimal improvement with increase in pressors infusing at this time. Call placed to , orders received, vasopressin started with almost immediate improvement in BP. Levophed and dopamine wean as tolerated, pt moves all extremities, follows simple commands.
--- NOTE | 2019-06-13 22:59 | NUR ---
2100..Vital signs remain stable, morphine given for incisional pain effective, no other changes noted.
[2019-06-13 23:33] LABS: TOTAL CELLS COUNTED 100
[2019-06-13 23:34] LABS: ANISOCYTOSIS 2+; ELLIPTOCYTES 1+; PLATELET ESTIMATE NORMAL
[2019-06-14] VITALS (31 sets, daily range): BP systolic 92–137; BP diastolic 38–67
--- NOTE | 2019-06-14 00:07 | NUR ---
0000..Vent weaned to spontaneous, tolerating well. No other changes noted.
[2019-06-14 01:12] LABS: ANISOCYTOSIS 2+; PLATELET ESTIMATE DECREASED
[2019-06-14 01:13] LABS: ELLIPTOCYTES 1+
[2019-06-14 01:35] LABS: ABG BASE EXCESS -4.9 mmol/L (-2.0-3.0); ABG HCO3 18.7 mmol/L (22.0-26.0); ABG OXYGEN SATURATION 97.8 % (95-98); ABG PCO2 (T) 28.4 mmHg (35.0-45.0); ABG PH (T) 7.435 (7.350-7.450); ABG PO2 (T) 120.5 mmHg (83-108); FCOHb 0.3 % (0.5-1.5); FMetHb 0.4 % (0.3-1.12); FO2Hb 97.1 % (94-100); MINUTE VOLUME 7 L/min; PATIENT TEMPERATURE 36.7; PEEP 5 cm H2O; RESPIRATORY RATE (OBSERVED) 11 b/min; TOTAL HEMOGLOBIN 7.3 G/dl (14.0-17.9)
[2019-06-14] MEDS: morphine 4 MG/ML inj SYRINge IV PRN (01:44)
--- NOTE | 2019-06-14 01:54 | NUR ---
[id number]..Pt passed weaning parameters, extubated to 4l nasal cannula. No wheezing or stridor noted. Complained of incisional pain 9\10. Medicated with morphine 4mg iv per orders with good effect.
[2019-06-14 03:03] LABS: BASOPHILS % (AUTO) 0.1 % (0-1); EOSINOPHILS % (AUTO) 0 % (0-6); LYMPHOCYTES # (AUTO) 0.5 X10'3 (1.1-4.8); LYMPHOCYTES % (AUTO) 5.3 % (21-51); MEAN CORPUSCULAR HEMOGLOBIN 27.1 PG (27.0-31.0); MEAN CORPUSCULAR HGB CONC 33.2 g/dL (33.0-36.5); MEAN CORPUSCULAR VOLUME 81.7 FL (78-98); MEAN PLATELET VOLUME 8.1 FL (7.4-10.4); MONOCYTES # (AUTO) 0.7 X10'3 (0-0.9); MONOCYTES % (AUTO) 7.7 % (2-12); NEUTROPHILS % (AUTO) 86.9 % (42-75); PLATELET COUNT 121 X10'3 (140-440); RED BLOOD COUNT 2.44 X10'6 (4.70-6.10); RED CELL DISTRIBUTION WIDTH 19.1 % (11.5-14.5); WHITE BLOOD COUNT 9.2 X10'3 (4.5-11.0)
[2019-06-14 03:06] LABS: HEMOGLOBIN 6.6 g/dl (14.0-17.9)
[2019-06-14 03:20] LABS: PARTIAL THROMBOPLASTIN TIME 27 SECONDS (22-32)
[2019-06-14 03:21] LABS: ALANINE AMINOTRANSFERASE 22 U/L (12-78); ALBUMIN 3.9 G/DL (3.4-5.0); ALBUMIN/GLOBULIN RATIO 2.1 (1.1-1.5); ALKALINE PHOSPHATASE 50 IU/L (46-116); ANION GAP 12 (8-16); ASPARTATE AMINO TRANSFERASE 32 U/L (10-37); BILIRUBIN,TOTAL 0.7 MG/DL (0.1-1.0); BLOOD UREA NITROGEN 28 MG/DL (7-18); BUN/CREATININE RATIO 25.7 (5.4-32.0); CALCIUM 8.1 MG/DL (8.5-10.1); CHLORIDE 114 MMOL/L (99-107); CREATININE 1.09 MG/DL (0.60-1.10); GLUCOSE 146 MG/DL (70-104); MAGNESIUM 2.7 MG/DL (1.5-2.4); PHOSPHORUS 5.1 MG/DL (2.3-4.5); POTASSIUM 4.9 MMOL/L (3.5-5.1); SODIUM 146 MMOL/L (135-145); TOTAL PROTEIN 5.8 G/DL (6.4-8.2); eGFR 66 ML/MIN
--- NOTE | 2019-06-14 04:16 | NUR ---
0400..Resting quietly, no changes noted.
--- NOTE | 2019-06-14 05:25 | NUR ---
0515..Call placed to , updated on labs, pt status, orders received.
--- NOTE | 2019-06-14 06:32 | NUR ---
0630..Problems reprioritized. Patient report given, questions answered & plan of care reviewed with Adria GOMEZ.
--- NOTE | 2019-06-14 06:45 | NUR ---
Patient in room CICU 2012. I have received report from night time babysitter RN and had the opportunity to ask questions and assume patient care.
[2019-06-14] MEDS: metoprolol tartrate 12.5mg (1/2 tablet) PO SCH ×2 (08:00→20:58)
[2019-06-14] MEDS ORDERED: aspirin 325mg tablet, delayed-release (Ecotrin) PO SCH (08:00)
[2019-06-14] MEDS: ceFAZolin 1GM/D5W- ADD-VANTAGE 50 ML IV SCH ×2 (08:35→16:00)
[2019-06-14] MEDS: vancomycin/NS 1 GM ADD-VANTAGE 250 ML IV SCH ×2 (08:35→19:55)
[2019-06-14] MEDS: atorvastatin 10mg tablet PO SCH (08:36)
[2019-06-14] MEDS: mupirocin 2% nasal ointment 1gm UD NS SCH ×2 (08:36→19:55)
[2019-06-14] MEDS: docusate sod 100mg capsule PO SCH ×2 (08:36→19:55)
[2019-06-14] MEDS: gabapentin 300mg capsule PO SCH ×3 (08:36→20:57)
[2019-06-14] MEDS: insulin Lispro (HumaLOG) vial - multi-dose SQ SCH ×3 (09:00→18:00)
[2019-06-14] MEDS ORDERED: furosemide 40mg/4ml inj IV ONE (10:15)
--- NOTE | 2019-06-14 10:30 | NUR ---
Dr Mcfarland at bedside, updated on current status of patient, vital signs and medications.
[2019-06-14] MEDS: HYDROcodone/acetaminophen 10/325mg tab PO PRN (14:44)
--- NOTE | 2019-06-14 16:00 | NUR ---
SG and art line dc, cortis dc without problem, pressure until hemostasis achieved. pt tolerated procedure well.
--- NOTE | 2019-06-14 17:30 | NUR ---
Dr Mcfarland at bedside, updated on low BP with PT, and inability to walk due to low bp. updated on current VS.
[2019-06-14] MEDS: lactobacillus rhamnosus 10,000 MMU CELLS/CAPSULE PO SCH (19:55)
[2019-06-14] MEDS: Melatonin 3mg tablet PO SCH (20:59)
[2019-06-15] VITALS (25 sets, daily range): BP systolic 93–134; BP diastolic 40–69
[2019-06-15] MEDS ORDERED: ceFAZolin 1GM/D5W- ADD-VANTAGE 50 ML IV SCH (02:15)
[2019-06-15] MEDS: ceFAZolin 1GM/D5W- ADD-VANTAGE 50 ML IV SCH (02:25)
[2019-06-15 03:21] LABS: BASOPHILS % (AUTO) 0 % (0-1); EOSINOPHILS % (AUTO) 0 % (0-6); HEMATOCRIT 24.3 % (42.0-52.0); HEMOGLOBIN 8.1 g/dl (14.0-17.9); LYMPHOCYTES # (AUTO) 0.4 X10'3 (1.1-4.8); LYMPHOCYTES % (AUTO) 3.1 % (21-51); MEAN CORPUSCULAR HEMOGLOBIN 28.4 PG (27.0-31.0); MEAN CORPUSCULAR HGB CONC 33.2 g/dL (33.0-36.5); MEAN CORPUSCULAR VOLUME 85.5 FL (78-98); MEAN PLATELET VOLUME 9.2 FL (7.4-10.4); MONOCYTES % (AUTO) 7.4 % (2-12); NEUTROPHILS # (AUTO) 11.6 X10'3 (1.8-7.7); NEUTROPHILS % (AUTO) 89.5 % (42-75); PLATELET COUNT 93 X10'3 (140-440); RED BLOOD COUNT 2.84 X10'6 (4.70-6.10); RED CELL DISTRIBUTION WIDTH 18.4 % (11.5-14.5); WHITE BLOOD COUNT 12.9 X10'3 (4.5-11.0)
[2019-06-15 03:36] LABS: ALBUMIN 3.6 G/DL (3.4-5.0); ANION GAP 10 (8-16); BLOOD UREA NITROGEN 36 MG/DL (7-18); BUN/CREATININE RATIO 34.6 (5.4-32.0); CALCIUM 8.1 MG/DL (8.5-10.1); CHLORIDE 110 MMOL/L (99-107); CREATININE 1.04 MG/DL (0.60-1.10); GLUCOSE 151 MG/DL (70-104); MAGNESIUM 2.7 MG/DL (1.5-2.4); PHOSPHORUS 4.2 MG/DL (2.3-4.5); POTASSIUM 4.6 MMOL/L (3.5-5.1); SODIUM 144 MMOL/L (135-145); TOTAL CARBON DIOXIDE 24.5 MMOL/L (24-32); eGFR 70 ML/MIN
[2019-06-15] MEDS: vasopressin inj. 20 UNIT in normal saline 100ml IV soln 39 ML IV SCH (04:35)
--- NOTE | 2019-06-15 06:30 | NUR ---
Patient in room CICU 2013. I have received report from JASON NAGY and had the opportunity to ask questions and assume patient care.
[2019-06-15] MEDS ORDERED: pantoprazole 40mg Tablet.DR PO SCH (07:30)
[2019-06-15] MEDS: mupirocin 2% nasal ointment 1gm UD NS SCH ×2 (08:51→20:55)
[2019-06-15] MEDS: aspirin 81mg tab.chew PO SCH (08:54)
[2019-06-15] MEDS: docusate sod 100mg capsule PO SCH ×2 (08:55→20:55)
[2019-06-15] MEDS: lactobacillus rhamnosus 10,000 MMU CELLS/CAPSULE PO SCH ×2 (08:56→20:55)
[2019-06-15] MEDS: atorvastatin 10mg tablet PO SCH (08:57)
[2019-06-15] MEDS: metoprolol tartrate 12.5mg (1/2 tablet) PO SCH ×2 (08:58→20:55)
[2019-06-15] MEDS: insulin Lispro (HumaLOG) vial - multi-dose SQ SCH ×3 (09:00→18:00)
[2019-06-15] MEDS: gabapentin 300mg capsule PO SCH (09:02)
[2019-06-15] MEDS: sodium chloride 0.45% 1,000 ML IV SCH (10:07)
--- NOTE | 2019-06-15 11:50 | NUR ---
ALVARADO CATH DC'D PER ORDERS. MASSIMO HARPER. URINAL AT BEDSIDE. VERBALIZED INSTRUCTIONS.
--- NOTE | 2019-06-15 12:03 | NUR ---
Nutrition consult: Pt/SO seen by RD for written/verbal high protein ed w/ RD contact information provided. Pt agrees to cottage cheese w/ fruit at lunches and prunes at breakfasts; dislikes pineapples. Dietary notified. Pt PO 100% meals meeting needs. [facility] 06/11. Will continue to monitor. Rec: 1. continue NCS diet 2. cottage cheese w/ fruit at lunches; prunes at breakfasts for constipation 3. routine bowel care 4. wt per rx Addendum: 06/15/19 at [address] Amended: Links added.
--- NOTE | 2019-06-15 13:08 | NUR ---
UP AMB WITH PT. THEN TO CHAIR. APPEARS SOB WITH ACTIVITY.
--- NOTE | 2019-06-15 18:21 | NUR ---
Problems reprioritized. Patient report given, questions answered & plan of care reviewed with mary schultz.
--- NOTE | 2019-06-15 18:31 | NUR ---
Patient in room CICU 2013. I have received report from CHLOE GOMEZ and had the opportunity to ask questions and assume patient care.
[2019-06-15] MEDS: NORepinephrine 8mg/ 250ml NS 250 ML IV SCH (18:50)
[2019-06-15] MEDS: Melatonin 3mg tablet PO SCH (19:50)
[2019-06-16] VITALS (12 sets, daily range): BP systolic 106–145; BP diastolic 54–76
[2019-06-16 05:18] LABS: BASOPHILS % (AUTO) 0.1 % (0-1); EOSINOPHILS % (AUTO) 0 % (0-6); HEMATOCRIT 25.3 % (42.0-52.0); HEMOGLOBIN 8.5 g/dl (14.0-17.9); LYMPHOCYTES # (AUTO) 0.9 X10'3 (1.1-4.8); LYMPHOCYTES % (AUTO) 7.4 % (21-51); MEAN CORPUSCULAR HEMOGLOBIN 28.6 PG (27.0-31.0); MEAN CORPUSCULAR HGB CONC 33.4 g/dL (33.0-36.5); MEAN CORPUSCULAR VOLUME 85.6 FL (78-98); MEAN PLATELET VOLUME 9.2 FL (7.4-10.4); MONOCYTES # (AUTO) 1.1 X10'3 (0-0.9); MONOCYTES % (AUTO) 9.3 % (2-12); NEUTROPHILS # (AUTO) 9.7 X10'3 (1.8-7.7); NEUTROPHILS % (AUTO) 83.2 % (42-75); PLATELET COUNT 113 X10'3 (140-440); RED BLOOD COUNT 2.96 X10'6 (4.70-6.10); RED CELL DISTRIBUTION WIDTH 18.6 % (11.5-14.5); WHITE BLOOD COUNT 11.7 X10'3 (4.5-11.0)
[2019-06-16 05:29] LABS: ALBUMIN 3.6 G/DL (3.4-5.0); ANION GAP 10 (8-16); BLOOD UREA NITROGEN 39 MG/DL (7-18); BUN/CREATININE RATIO 42.9 (5.4-32.0); CALCIUM 8.1 MG/DL (8.5-10.1); CHLORIDE 109 MMOL/L (99-107); CREATININE 0.91 MG/DL (0.60-1.10); GLUCOSE 124 MG/DL (70-104); MAGNESIUM 2.3 MG/DL (1.5-2.4); PHOSPHORUS 2.8 MG/DL (2.3-4.5); POTASSIUM 4.2 MMOL/L (3.5-5.1); SODIUM 143 MMOL/L (135-145); eGFR 81 ML/MIN
--- NOTE | 2019-06-16 06:15 | NUR ---
Problems reprioritized. Patient report given, questions answered & plan of care reviewed with PAT RN.
[2019-06-16] MEDS ORDERED: magnesium 2GM in 50ml NS 50 ML IV PRN (07:15)
[2019-06-16] MEDS ORDERED: potassium CL 10mEq/100ml bag 100 ML IV PRN ×2 (07:15)
[2019-06-16] MEDS ORDERED: potassium Cl 20 mEq SR tablet PO PRN ×2 (07:15)
[2019-06-16] MEDS ORDERED: magnesium Cl slow-release 64mg tablet PO PRN (07:15)
[2019-06-16] MEDS ORDERED: magnesium 4gm in 100ml NS 100 ML IV PRN (07:15)
[2019-06-16 07:18] LABS: PLATELET ESTIMATE DECREASED
[2019-06-16 07:19] LABS: ANISOCYTOSIS 2+
[2019-06-16 07:20] LABS: POIKILOCYTOSIS 1+
[2019-06-16] MEDS: magnesium Cl slow-release 64mg tablet PO SCH ×2 (08:00→20:12)
[2019-06-16] MEDS: potassium Cl 20 mEq SR tablet PO SCH ×2 (08:00→20:10)
[2019-06-16] MEDS: K and/or MAG REPLACEMENT MC SCH (08:00)
[2019-06-16] MEDS: atorvastatin 10mg tablet PO SCH (08:34)
[2019-06-16] MEDS: docusate sod 100mg capsule PO SCH ×2 (08:34→20:12)
[2019-06-16] MEDS: aspirin 81mg tab.chew PO SCH (08:34)
[2019-06-16] MEDS: lactobacillus rhamnosus 10,000 MMU CELLS/CAPSULE PO SCH ×2 (08:34→20:13)
[2019-06-16] MEDS: metoprolol tartrate 12.5mg (1/2 tablet) PO SCH ×2 (08:35→20:12)
--- NOTE | 2019-06-16 11:14 | NUR ---
REPORT PHONED TO Daksha GOMEZ. TRANSPORT PATIENT WITH ALL BELONGINGS TO ROOM 308. PATIENT'S AT HIS SIDE. Addendum: 06/16/19 at 1117 by Selina Jang RN Amended: Links added.
--- NOTE | 2019-06-16 16:40 | NUR ---
Orienteer documentation: I have reviewed and agree with all interventions, assessments performed and documented by Negra GOMEZ.
--- NOTE | 2019-06-16 18:15 | NUR ---
Patient in room MED 308. I have received report from Patel RN/Rosa RN (orienteer) and had the opportunity to ask questions and assume patient care.
--- NOTE | 2019-06-16 18:25 | NUR ---
Problems reprioritized. Patient report given, questions answered & plan of care reviewed with Earnestine GOMEZ and Michelle GOMEZ.
[2019-06-16] MEDS: Melatonin 3mg tablet PO SCH (20:16)
[2019-06-17] MEDS: HYDROcodone/acetaminophen 10/325mg tab PO PRN ×2 (01:46→22:53)
[2019-06-17 02:00] VITALS: BP 139/77
[2019-06-17 05:15] LABS: ACT @ 1.70 U 316 SEC (193-297); ACT @ 2.84 U 467 SEC (260-420); BASELINE ACT 144 SEC (101-148); PATIENT WEIGHT 75.0k KG
[2019-06-17 05:15] LABS: ACTIVATED CLOTTING TIME 119 SEC (101-148)
[2019-06-17 06:00] VITALS: BP 133/70
[2019-06-17 06:12] LABS: BASOPHILS % (AUTO) 0.2 % (0-1); EOSINOPHILS % (AUTO) 0 % (0-6); HEMATOCRIT 26.5 % (42.0-52.0); HEMOGLOBIN 8.9 g/dl (14.0-17.9); LYMPHOCYTES # (AUTO) 1.1 X10'3 (1.1-4.8); LYMPHOCYTES % (AUTO) 10.9 % (21-51); MEAN CORPUSCULAR HEMOGLOBIN 28.9 PG (27.0-31.0); MEAN CORPUSCULAR HGB CONC 33.7 g/dL (33.0-36.5); MEAN CORPUSCULAR VOLUME 85.9 FL (78-98); MEAN PLATELET VOLUME 8.6 FL (7.4-10.4); MONOCYTES # (AUTO) 1.2 X10'3 (0-0.9); MONOCYTES % (AUTO) 11.8 % (2-12); NEUTROPHILS # (AUTO) 7.8 X10'3 (1.8-7.7); NEUTROPHILS % (AUTO) 77.1 % (42-75); PLATELET COUNT 140 X10'3 (140-440); RED BLOOD COUNT 3.09 X10'6 (4.70-6.10); RED CELL DISTRIBUTION WIDTH 18.4 % (11.5-14.5); WHITE BLOOD COUNT 10.2 X10'3 (4.5-11.0)
--- NOTE | 2019-06-17 06:20 | NUR ---
Problems reprioritized. Patient report given, questions answered & plan of care reviewed with JASON Vences.
[2019-06-17 06:29] LABS: ALBUMIN 3.4 G/DL (3.4-5.0); ANION GAP 9 (8-16); BLOOD UREA NITROGEN 27 MG/DL (7-18); BUN/CREATININE RATIO 33.8 (5.4-32.0); CHLORIDE 108 MMOL/L (99-107); GLUCOSE 117 MG/DL (70-104); MAGNESIUM 2.2 MG/DL (1.5-2.4); POTASSIUM 4.3 MMOL/L (3.5-5.1); SODIUM 141 MMOL/L (135-145); TOTAL CARBON DIOXIDE 24.4 MMOL/L (24-32); eGFR > 90 ML/MIN
--- NOTE | 2019-06-17 06:36 | NUR ---
Patient in room MED 308. I have received report from JASON Colby and had the opportunity to ask questions and assume patient care.
[2019-06-17] MEDS ORDERED: ASPI-1265 PO (06:46)
[2019-06-17] MEDS ORDERED: ATOR10TA PO (06:46)
[2019-06-17] MEDS ORDERED: HYDR-3972 PO (06:46)
[2019-06-17] MEDS ORDERED: METO25TA6 PO (06:46)
[2019-06-17] MEDS: K and/or MAG REPLACEMENT MC SCH (08:00)
[2019-06-17] MEDS: metoprolol tartrate 12.5mg (1/2 tablet) PO SCH ×2 (08:03→19:25)
[2019-06-17] MEDS: magnesium Cl slow-release 64mg tablet PO SCH ×2 (08:04→19:24)
[2019-06-17] MEDS: potassium Cl 20 mEq SR tablet PO SCH ×2 (08:04→19:24)
[2019-06-17] MEDS: aspirin 81mg tab.chew PO SCH (08:05)
[2019-06-17] MEDS: lactobacillus rhamnosus 10,000 MMU CELLS/CAPSULE PO SCH ×2 (08:05→19:26)
[2019-06-17] MEDS: docusate sod 100mg capsule PO SCH ×2 (08:05→19:24)
[2019-06-17] MEDS: atorvastatin 10mg tablet PO SCH (08:05)
[2019-06-17] MEDS ORDERED: magnesium 4gm in 100ml NS 100 ML IV PRN (08:55)
[2019-06-17] MEDS ORDERED: magnesium 2GM in 50ml NS 50 ML IV PRN (08:55)
[2019-06-17] MEDS ORDERED: potassium Cl 20mEq/100mL bag 100 ML IV PRN (08:55)
[2019-06-17] MEDS ORDERED: potassium Cl 20 mEq SR tablet PO PRN (08:55)
[2019-06-17 11:00] VITALS: BP 131/63
[2019-06-17 15:00] VITALS: BP 133/61
[2019-06-17 18:00] VITALS: BP 146/93
--- NOTE | 2019-06-17 18:27 | NUR ---
Problems reprioritized. Patient report given, questions answered & plan of care reviewed with JASON Christian.
--- NOTE | 2019-06-17 20:35 | NUR ---
Patient in room MED 308. I have received report from Rosa RN and JASON Vences and had the opportunity to ask questions and assume patient care.
[2019-06-17] MEDS: Melatonin 3mg tablet PO SCH (21:00)
[2019-06-17 22:00] VITALS: BP 136/75
[2019-06-18] VITALS (7 sets, daily range): BP systolic 119–146; BP diastolic 64–81
--- NOTE | 2019-06-18 06:00 | NUR ---
Patient in room MED 308. I have received report from Earnestine and had the opportunity to ask questions and assume patient care.
[2019-06-18 06:29] LABS: ALBUMIN 3.1 G/DL (3.4-5.0); ANION GAP 8 (8-16); BLOOD UREA NITROGEN 21 MG/DL (7-18); BUN/CREATININE RATIO 26.9 (5.4-32.0); CHLORIDE 109 MMOL/L (99-107); CREATININE 0.78 MG/DL (0.60-1.10); GLUCOSE 102 MG/DL (70-104); POTASSIUM 4.3 MMOL/L (3.5-5.1); SODIUM 141 MMOL/L (135-145); TOTAL CARBON DIOXIDE 23.7 MMOL/L (24-32); eGFR > 90 ML/MIN
[2019-06-18 06:35] LABS: BASOPHILS % (AUTO) 0.4 % (0-1); EOSINOPHILS # (AUTO) 0.1 X10'3 (0-0.9); EOSINOPHILS % (AUTO) 1.6 % (0-6); HEMATOCRIT 27.3 % (42.0-52.0); HEMOGLOBIN 9.1 g/dl (14.0-17.9); LYMPHOCYTES # (AUTO) 1.4 X10'3 (1.1-4.8); LYMPHOCYTES % (AUTO) 18.4 % (21-51); MEAN CORPUSCULAR HEMOGLOBIN 28.9 PG (27.0-31.0); MEAN CORPUSCULAR HGB CONC 33.4 g/dL (33.0-36.5); MEAN CORPUSCULAR VOLUME 86.5 FL (78-98); MEAN PLATELET VOLUME 8.6 FL (7.4-10.4); MONOCYTES # (AUTO) 1.1 X10'3 (0-0.9); MONOCYTES % (AUTO) 14.7 % (2-12); NEUTROPHILS # (AUTO) 5.1 X10'3 (1.8-7.7); NEUTROPHILS % (AUTO) 64.9 % (42-75); PLATELET COUNT 180 X10'3 (140-440); RED BLOOD COUNT 3.15 X10'6 (4.70-6.10); RED CELL DISTRIBUTION WIDTH 17.7 % (11.5-14.5); WHITE BLOOD COUNT 7.8 X10'3 (4.5-11.0)
--- NOTE | 2019-06-18 06:44 | NUR ---
Gerald Medication Administration: For this medication-pass time frame, all medication were reviewed, dispensed, administered and documented per hospital policy by JASON Christian. Addendum: 06/18/19 at 0646 by Earnestine Aceves RN Orienteer documentation: I have reviewed and agree with all interventions, assessments performed and documented by JASON Christian.
--- NOTE | 2019-06-18 06:44 | NUR ---
Problems reprioritized. Patient report given, questions answered & plan of care reviewed with Freya RN.
[2019-06-18] MEDS: metoprolol tartrate 12.5mg (1/2 tablet) PO SCH ×2 (08:00→19:59)
[2019-06-18] MEDS: potassium Cl 20 mEq SR tablet PO SCH ×2 (08:30→19:59)
[2019-06-18] MEDS: magnesium Cl slow-release 64mg tablet PO SCH ×2 (08:31→19:57)
[2019-06-18] MEDS: atorvastatin 10mg tablet PO SCH (08:31)
[2019-06-18] MEDS: lactobacillus rhamnosus 10,000 MMU CELLS/CAPSULE PO SCH ×2 (08:31→19:57)
[2019-06-18] MEDS: docusate sod 100mg capsule PO SCH ×2 (08:31→19:56)
[2019-06-18] MEDS: aspirin 81mg tab.chew PO SCH (08:31)
--- NOTE | 2019-06-18 18:00 | NUR ---
Patient in room MED 308. I have received report from JASON Phan, and had the opportunity to ask questions and assume patient care.
--- NOTE | 2019-06-18 18:15 | NUR ---
Patient in room MED 308. I have received report from JASON Pillai and had the opportunity to ask questions and assume patient care.
--- NOTE | 2019-06-18 18:34 | NUR ---
Problems reprioritized. Patient report given, questions answered & plan of care reviewed with DORIS GOMEZ.
[2019-06-18] MEDS: HYDROcodone/acetaminophen 5mg/325mg tablet PO PRN (19:58)
[2019-06-18] MEDS: Melatonin 3mg tablet PO SCH (21:00)
[2019-06-19] MEDS: HYDROcodone/acetaminophen 5mg/325mg tablet PO PRN (00:29)
[2019-06-19 02:00] VITALS: BP_SYST 110; BP_SYST 137; BP_DIAS 60; BP_DIAS 83
[2019-06-19 04:52] LABS: BASOPHILS % (AUTO) 0.4 % (0-1); EOSINOPHILS # (AUTO) 0.2 X10'3 (0-0.9); EOSINOPHILS % (AUTO) 1.9 % (0-6); HEMATOCRIT 28.6 % (42.0-52.0); HEMOGLOBIN 9.6 g/dl (14.0-17.9); LYMPHOCYTES # (AUTO) 1.4 X10'3 (1.1-4.8); LYMPHOCYTES % (AUTO) 17.7 % (21-51); MEAN CORPUSCULAR HGB CONC 33.6 g/dL (33.0-36.5); MEAN CORPUSCULAR VOLUME 86.4 FL (78-98); MEAN PLATELET VOLUME 8.1 FL (7.4-10.4); MONOCYTES # (AUTO) 1.1 X10'3 (0-0.9); MONOCYTES % (AUTO) 14.2 % (2-12); NEUTROPHILS # (AUTO) 5.3 X10'3 (1.8-7.7); NEUTROPHILS % (AUTO) 65.8 % (42-75); PLATELET COUNT 221 X10'3 (140-440); RED BLOOD COUNT 3.31 X10'6 (4.70-6.10); RED CELL DISTRIBUTION WIDTH 18.1 % (11.5-14.5); WHITE BLOOD COUNT 8.1 X10'3 (4.5-11.0)
[2019-06-19 05:14] LABS: ALBUMIN 3.1 G/DL (3.4-5.0); ANION GAP 9 (8-16); BLOOD UREA NITROGEN 19 MG/DL (7-18); BUN/CREATININE RATIO 27.5 (5.4-32.0); CALCIUM 7.9 MG/DL (8.5-10.1); CHLORIDE 109 MMOL/L (99-107); CREATININE 0.69 MG/DL (0.60-1.10); GLUCOSE 110 MG/DL (70-104); MAGNESIUM 2.3 MG/DL (1.5-2.4); POTASSIUM 4.6 MMOL/L (3.5-5.1); SODIUM 140 MMOL/L (135-145); TOTAL CARBON DIOXIDE 21.7 MMOL/L (24-32); eGFR > 90 ML/MIN
[2019-06-19 06:00] VITALS: BP 150/82
--- NOTE | 2019-06-19 06:00 | NUR ---
Reviewed and agreed with JASON Christian's charting
--- NOTE | 2019-06-19 06:15 | NUR ---
Problems reprioritized. Patient report given, questions answered & plan of care reviewed with JASON Martinez and JASON Kendall.
--- NOTE | 2019-06-19 06:47 | NUR ---
Patient in room MED 308. I have received report from Anahi GOMEZ, June GOMEZ and had the opportunity to ask questions and assume patient care.
[2019-06-19] MEDS ORDERED: POTA10TA36 PO (07:26)
[2019-06-19] MEDS ORDERED: FURO20TA4 PO (07:26)
[2019-06-19] MEDS ORDERED: furosemide 20MG tablet PO SCH (08:00)
[2019-06-19] MEDS: potassium Cl 20 mEq SR tablet PO SCH (08:00)
[2019-06-19] MEDS: aspirin 81mg tab.chew PO SCH (08:46)
[2019-06-19] MEDS: atorvastatin 10mg tablet PO SCH (08:47)
[2019-06-19] MEDS: magnesium Cl slow-release 64mg tablet PO SCH (08:47)
[2019-06-19] MEDS: lactobacillus rhamnosus 10,000 MMU CELLS/CAPSULE PO SCH (08:47)
[2019-06-19] MEDS: docusate sod 100mg capsule PO SCH (08:47)
[2019-06-19] MEDS: metoprolol tartrate 12.5mg (1/2 tablet) PO SCH (08:51)
[2019-06-19 11:00] VITALS: BP 113/58
--- NOTE | 2019-06-19 13:10 | NUR ---
Patient was discharged in stable condition by Dr Mcfarland. All discharge paperwork and instructions were reviewed with the patient and his family members, they had no further questions at this time. His IV was removed with the catheter tip intact, there was minimal bleeding and clean gauze and tape were applied. His new medications were delivered by [facility]. He declined a wheelchair upon discharge, and ambulated out of the hospital accompanied by his daughters. they were headed to daughter's house in [place].
--- NOTE | 2019-06-19 15:58 | NUR ---
Orientee documentation: I have reviewed and agree with all interventions, assessments performed and documented by Faiza GOEMZ. Orientee Medication Administration: For this medication-pass time frame, all medication were reviewed, dispensed, administered and documented per hospital policy by Faiza GOMEZ.
== END 2019-06-19 13:10 | disposition home health service (06) | DRG 219 ==
LOC: ER 14:12 → MED 3N 17:34 → CMPBEDREQ 19:35 → CICU 2S 06-13 07:28 → MED 3N 06-16 12:44
PROVIDERS: ADMIT Family Medicine; ATTEND Family Medicine
PROC: B24BZZ4 Ultrasonography of Heart with Aorta, Transesophageal (ICD-10-PCS; 2019-06-13)
PROC: 5A1221Z Performance of Cardiac Output, Continuous (ICD-10-PCS; 2019-06-13)
PROC: 02L70CK Occlusion of Left Atrial Appendage with Extraluminal Device, Open Approach (ICD-10-PCS; 2019-06-13)
PROC: 02HV33Z Insertion of Infusion Device into Superior Vena Cava, Percutaneous Approach (ICD-10-PCS; 2019-06-13)
PROC: B548ZZA Ultrasonography of Superior Vena Cava, Guidance (ICD-10-PCS; 2019-06-13)
PROC: 4A133B3 Monitoring of Arterial Pressure, Pulmonary, Percutaneous Approach (ICD-10-PCS; 2019-06-13)
PROC: 02HP32Z Insertion of Monitoring Device into Pulmonary Trunk, Percutaneous Approach (ICD-10-PCS; 2019-06-13)
PROC: 30233K1 Transfusion of Nonautologous Frozen Plasma into Peripheral Vein, Percutaneous Approach (ICD-10-PCS; 2019-06-13)
PROC: 30233R1 Transfusion of Nonautologous Platelets into Peripheral Vein, Percutaneous Approach (ICD-10-PCS; 2019-06-13)
PROC: 30233M1 Transfusion of Nonautologous Plasma Cryoprecipitate into Peripheral Vein, Percutaneous Approach (ICD-10-PCS; 2019-06-13)
PROC: 02RF08Z Replacement of Aortic Valve with Zooplastic Tissue, Open Approach (ICD-10-PCS; principal; 2019-06-13 06:40)
PROC: 30233N1 Transfusion of Nonautologous Red Blood Cells into Peripheral Vein, Percutaneous Approach (ICD-10-PCS; 2019-06-14)
DX: I34.0 Nonrheumatic mitral (valve) insufficiency (principal); I50.43 Acute on chronic combined systolic (congestive) and diastolic (congestive) heart failure; N17.9 Acute kidney failure, unspecified; D68.9 Coagulation defect, unspecified; I48.92 Unspecified atrial flutter; M48.50XA Collapsed vertebra, not elsewhere classified, site unspecified, initial encounter for fracture; D62 Acute posthemorrhagic anemia; I42.8 Other cardiomyopathies; R00.1 Bradycardia, unspecified; I34.1 Nonrheumatic mitral (valve) prolapse; Z66 Do not resuscitate; B34.9 Viral infection, unspecified; R09.89 Other specified symptoms and signs involving the circulatory and respiratory systems; I27.20 Pulmonary hypertension, unspecified; G47.30 Sleep apnea, unspecified; I70.0 Atherosclerosis of aorta; Z86.2 Personal history of diseases of the blood and blood-forming organs and certain disorders involving the immune mechanism; Z86.73 Personal history of transient ischemic attack (TIA), and cerebral infarction without residual deficits; Z86.74 Personal history of sudden cardiac arrest; Z79.899 Other long term (current) drug therapy
CPT/HCPCS: 0232T; 93312; 93325; 96374; 99285; 36415; 36600; 71045; 71046; 80048; 80053; 80061; 81003; 82330; 82435; 82803; 82947; 82948; 83036; 83735; 83880; 84100; 84132; 84295; 84439; 84443; 84484; 85018; 85025; 85027; 85347; 85384; 85610; 85651; 85730; 86140; 86885; 86900; 86901; 86920; 87081; 93005; 93308; 93880; 93970; 94010; 94668; 94760; 97110; 97116; 97161; 97164; 97530; A4618; A6258; A6402; A6449; A7000; A7048; C1713; C1751; C9113; G0378; J0131; J0690; J1265; J1644; J1815; J1940; J2060; J2150; J2250; J2270; J2370; J2795; J2930; J3370; J3475; J3480; J3490; J7030; J7040; J7050; J7120; P9012; P9016; P9035; P9045; P9047; P9059